=== PATIENT | female | born 1985 | race Caucasian/White ===

== ENCOUNTER 2020-03-17 22:18 | Inpatient (IN) | payer OTHER ==
[2020-03-18] MEDS ORDERED: Ondansetron PF 4 MG/2 ML Vial IVP PRN (03:50)
--- NOTE | 2020-03-18 03:56 | PDOC.HHP ---
Hospitalist HPI - History of Present Illness Right upper quadrant pain History of Present Illness: This is a 35-year-old female patient with a history of hypertension however not on any medications, anxiety who was transferred from [facility] in order that she could have GI evaluation and possible ERCP for cholelithiasis. She was in the room with her mother on arrival and her mother provided most of the history. Patient notes she gets very anxious and in language is not very fluent as her mother supports her with that. About a week ago she went out of her friend and came back home feeling uncomfortable in her epigastrium. She vomited a few times. Follow-up evaluation of PCP who ordered right upper quadrant ultrasound noted choledocholithiasis which necessitated her being admitted. On arrival at [facility] apparently GI was not availableshe was transferred here for care. Discussion of para been made with gastroenterologistDr. Jim. At the moment patient denies any nausea vomiting or fevers. Labs in [facility], CBC and BMP were essentially within normal limits. However creatinine was slightly elevated at 1.27 She is currently n.p.o. and has not had a drink since 2 AM a day ago. Hospitalist ROS - Review of Systems Constitutional: denies: fever, chills, sweats, weakness Respiratory: denies: cough, dry, shortness of breath, hemoptysis, SOB with excertion Cardiovascular: denies: chest pain, palpitations, orthopnea, paroxysmal noc. dyspnea Gastrointestinal: reports: nausea, abdominal pain. denies: vomiting, diarrhea, constipation Genitourinary: denies: dysuria, frequency, incontinence, hematuria Skin: denies: rash, lesions Neurological: denies: weakness All other systems reviewed; all pertinent +/- noted in HPI/Subj - Medication Medications: Medications: No chronic medications. Allergies: Sulfa Hospitalist History - Past Medical History Other Medical History: Anxiety, hypertension - Past Surgical History Past Surgical History: reports: no pertinent history - Family History Other Family History: Diabetes mellitus, hypertension - Social History Smoking Status: Never smoker Alcohol: reports: Occassional Living Situation: With Family Activity level: independent ambulation - Exam General Appearance: awake alert General - other findings: Her speech is a bit unclear. Eye: PERRL ENT: normocephalic atraumatic, no oropharyngeal lesions Heart: RRR, no murmur, no gallops, no rubs, normal peripheral pulses Respiratory: CTAB, no wheezes, no rales, no ronchi Gastrointestinal: soft, non-distended, normal bowel sounds, tender to palpation (In right upper quadrant) Extremities: no cyanosis, no clubbing, no edema Skin: normal turgor, no lesions, no rashes Neurological: cranial nerve grossly intact, normal sensation to touch, no focal deficits Psychiatric: normal affect, normal behavior, A&O x 3 Hospitalist H&P A/P - Plan Plan: This is a 35-year-old female with a history of anxiety, hypertension who was transferred from [facility] on account of right upper quadrant pain with ch oledocholithiasis requiring ERCP and possible surgery. Right upper quadrant pain secondary to choledocholithiasis We will keep her n.p.o. For GI possible surgery evaluation in a.m. IV fluidsD5 LR for now. Anxiety Currently stable Monitor. History of hypertension BP stable Continue monitoring. VT prophylaxisLovenox CODE STATUS full code
[2020-03-18] MEDS ORDERED: Sodium Chloride 0.9% 1,000 ML IV SCH (04:00)
[2020-03-18] MEDS ORDERED: Dextrose 5%-Lactated Ringers 1,000 ML IV SCH (04:00)
[2020-03-18] MEDS: Ondansetron ODT 4 MG TAB PO PRN ×2 (04:55→20:44)
[2020-03-18] MEDS: Dextrose 5%-Lactated Ringers 1,000 ML IV SCH ×2 (04:57→14:17)
[2020-03-18] MEDS: Enoxaparin Sodium 40 MG/0.4 ML SYRINGE SC SCH (07:50)
--- NOTE | 2020-03-18 08:25 | CON ---
DATE OF CONSULTATION: 03/18/2020 REASON FOR CONSULTATION: Choledocholithiasis. HISTORY OF PRESENT ILLNESS: Ms. Mcgowan is a 35-year-old female, who was transferred from [facility] ED last evening for further evaluation and treatment for reported choledocholithiasis and cholelithiasis. She has been having recurrent episodic severe upper abdominal pain without radiation, described as both burning and stabbing. Some of these episode was associated with nausea and vomiting. Reportedly, she was seen by her primary care provider 2 days ago and had lab tests done that showed elevation of liver profile. Ultrasound performed the next day reportedly showed cholelithiasis and choledocholithiasis with stone in the bile duct and the duct measuring 1.1 cm according to the ER physician at [facility]. I do not have the official report. Currently, she has been pain free for the last 36 hours. She is without any other medical issue except for hypertension. PAST MEDICAL HISTORY: 1. Hypertension. 2. Anxiety. 3. Mild mentally challenged. PAST SURGICAL HISTORY: [place] tooth extraction. ALLERGIES: PENICILLIN. MEDICATIONS: At home include; 1. Cryselle one p.o. daily. 2. Losartan 100 mg daily. 3. Sertraline 100 mg daily. SOCIAL HISTORY: The patient works at [employer] in [facility]. She has no tobacco and rarely consume alcohol. FAMILY HISTORY: Negative for any known GI problem, liver disease, or GI malignancy. REVIEW OF SYSTEMS: Ten-point review of systems did not show any other reported symptoms other than listed above. Negative pertinent positive or pertinent negatives. PHYSICAL EXAMINATION: VITAL SIGNS: Temperature is 97.8, blood pressure 124/85, and pulse of 81. GENERAL: She is alert, conversant. HEENT: Shows anicteric sclerae. Oropharynx is clear. CV: Shows normal S1 and S2. Regular rate and rhythm. CHEST: Shows breath sounds. ABDOMEN: Essentially soft, nontender. No palpable mass or organomegaly. Good bowel sounds. No bruit. EXTREMITIES: Show no edema. LABORATORY DATA: Labs were reviewed from the chart done at [facility] showed WBC of 7.0, hemoglobin 13.6, and platelet count of 145. Results of the chemistry and hepatic function panel are not available from the transfer record. ASSESSMENT: Symptomatic cholelithiasis with choledocholithiasis. Currently, the patient is pain free with benign exam. She is without fever and without leukocytosis. RECOMMENDATIONS: 1. ERCP. Indication including risk, not limited to, bleeding, perforation, and pancreatitis were discussed with the patient and mother. All questions answered. They agreed to proceed. 2. Surgery consult for subsequent cholecystectomy. Job ID: [id number]
[2020-03-18 09:04] LABS: SARS-CoV-2 NAA Rapid Test Not Detected (NotDetected)
[2020-03-18 09:25] LABS: ALT (SGPT) 256 U/L (8-55); AST (SGOT) 190 U/L (5-34); Albumin 3.9 g/dL (3.5-5.0); Alkaline Phosphatase 223 U/L (40-110); Anion Gap 14 mmol/L (10-20); BUN (Urea Nitrogen) 18 mg/dL (7.0-18.7); Calc. Creatinine Clearance 91 mL/min (70-130); Calcium 8.5 mg/dL (7.8-10.44); Carbon Dioxide 27 mmol/L (22-29); Chloride 101 mmol/L (98-107); Globulin 2.4 g/dL (2.4-3.5); Glucose 98 mg/dL (70-105); Protein, Total 6.3 g/dL (6.0-8.3); Sodium 139 mmol/L (136-145)
[2020-03-18 09:35] LABS: Potassium 2.9 mmol/L (3.5-5.1)
[2020-03-18] MEDS ORDERED: Promethazine HCl 25 MG/ML VIAL SLOW IVP PRN ×2 (09:37→14:35)
[2020-03-18] MEDS ORDERED: Ondansetron HCl/PF 4 MG/2 ML Vial IVP PRN ×2 (09:37→14:35)
[2020-03-18] MEDS ORDERED: Promethazine HCl 25 MG/ML VIAL IM PRN ×2 (09:37→14:35)
[2020-03-18 09:42] LABS: RBC Distribution Width 11.4 % (11.5-14.5)
[2020-03-18 09:46] LABS: #Basophils 0.1 thou/uL (0.0-0.2); #Lymphocytes 1.8 thou/uL (1.20-3.40); #Monocytes 0.4 thou/uL (0.11-0.59); #Neutrophils 2.7 thou/uL (1.40-6.50); %Basophils 1.1 % (0.0-1.0); %Lymphocytes 36.4 % (21.0-51.0); %Monocytes 7.1 % (0.0-10.0); %Neutrophils 54.5 % (42.0-75.0); Hemoglobin 13.4 g/dL (12.0-16.0); Mean Corpuscular HGB CONC 34.8 g/dL (32.0-36.0); Mean Corpuscular Hemoglobin 34.9 pg (27.0-31.0); Mean Platelet Volume 9.8 fL (7.4-10.4); Platelet Count 111 thou/uL (130-400); Platelet Morphology Comment Appears Decreased; Red Blood Cell (RBC) Count 3.83 mill/uL (4.20-5.40); White Blood Cell (WBC) Count 4.9 thou/uL (4.8-10.8)
[2020-03-18] MEDS ORDERED: PROPOFOL 200 MG/20 ML VIAL ONE (09:50)
[2020-03-18] MEDS ORDERED: Esmolol 100 MG/10 ML VIAL ONE (09:50)
[2020-03-18] MEDS ORDERED: PHENYLEPHRINE-NS 100 MCG/ML 10 ML SYRINGE ONE (09:50)
[2020-03-18] MEDS ORDERED: Dexamethasone 20 MG/5 ML VIAL ONE (09:50)
[2020-03-18] MEDS ORDERED: Ondansetron PF 4 MG/2 ML Vial ONE (09:50)
[2020-03-18] MEDS ORDERED: ePHEDrine 50 MG/ML VIAL ONE (09:50)
[2020-03-18] MEDS ORDERED: Lidocaine 1% PF 5 ML VIAL ONE (09:50)
[2020-03-18] MEDS ORDERED: Glycopyrrolate 0.2 MG/ML 5 ML SYRINGE ONE (09:50)
[2020-03-18] MEDS ORDERED: Rocuronium Bromide 10 MG/ML (10ML VIAL) ONE (09:50)
[2020-03-18] MEDS ORDERED: Midazolam HCl 2 mg/2 ml Vial ONE (10:17)
[2020-03-18] MEDS ORDERED: Iothalamate Meglumine 60% 50 ML VIAL FS ONE (10:21)
[2020-03-18] MEDS ORDERED: Indomethacin 50 MG SUPP ONE (10:22)
[2020-03-18] MEDS ORDERED: Fentanyl 100 MCG/2 ML VIAL ONE ×4 (10:26→15:10)
[2020-03-18] MEDS ORDERED: Levofloxacin 500 mg/D5W 100 ml Premix Bag ONE (10:41)
--- NOTE | 2020-03-18 11:04 | CON ---
DATE OF CONSULTATION: HISTORY: A 35-year-old female from [place], transferred to see Dr. Jim, admitted to the hospitalist service for choledocholithiasis, cholecystitis, cholelithiasis. For the past week, she has been having epigastric right upper quadrant pain. Ultrasound at [place] revealed 1.1 cm bile duct, elevated liver function tests. White count 4, hemoglobin 13. Potassium 2.9, bilirubin 2.0, AST and ALT 190 and 256, alkaline phosphatase 223. ALLERGIES: SULFA. TOBACCO: None. ALCOHOL: Socially. MEDICATIONS: 1. Sertraline 100 mg a day. 2. Losartan 100 mg a day. 3. Estradiol. PAST SURGICAL HISTORY: Ear surgery. PAST MEDICAL HISTORY: Deafness. She works at [employer]. She is 0, para 0. Her mother is with her. REVIEW OF SYSTEMS: Ten-point noncontributory. PHYSICAL EXAMINATION: VITAL SIGNS: 5 feet 5 inches, 186 pounds, 31 BMI, 97.8 degrees, 81, 19, 124/85. LUNGS: Clear to auscultation. CARDIAC: Regular rate and rhythm without murmur or gallop. ABDOMEN: Soft. Mild tenderness in the right upper quadrant. EXTREMITIES: Unremarkable. Ankle edema. LABORATORY DATA: As noted above. ASSESSMENT/PLAN: 1. Cholecystitis. 2. Cholelithiasis. 3. Choledocholithiasis. PLAN: Dr. Jim will plan on the ERCP, sphincterotomy, stone extraction under the same anesthetic plan of general anesthesia. Laparoscopic cholecystectomy. She understands risks of infection, bleeding, visceral and biliary injury and consents. Job ID: [id number]
[2020-03-18] MEDS ORDERED: Lidocaine 1% w/Epinephrine 1:100K 20 ML VIAL ONE (11:09)
[2020-03-18] MEDS ORDERED: Bupivacaine 0.25% HCL 30 ML VIAL ONE (11:09)
--- NOTE | 2020-03-18 13:35 | RAD ---
EXAM: XR ERCP DATE: 03/18/2020 11:00 AM INDICATION: ERCP COMPARISON: None. FINDIN submitted fluoroscopic images were obtained from an ERCP. Comparisons are made with a francoise or right upper quadrant ultrasound dated March 17, 2020. The submitted images demonstrate retrograde opacification of the common bile duct and intrahepatic biliary ducts. There is a mobile in traluminal filling defect within the common bile duct consistent with the previously imaged stone on the comparison right upper quadrant ultrasound. There is subsequent placement of a balloon and dis jose displacement of the intraluminal stone. Final submitted image demonstrates no focal filling defect. IMPRESSION:Choledocholithiasis. ERCP removal of the common bile duct stone.
[2020-03-18] MEDS ORDERED: Promethazine HCl 25 MG/ML VIAL ONE (14:52)
[2020-03-18] MEDS ORDERED: Ketorolac Tromethamine 30 MG/ML VIAL IVP PRN (15:03)
[2020-03-18] MEDS ORDERED: traMADol HCl 50 MG TAB PO PRN ×2 (15:03)
[2020-03-18] MEDS ORDERED: Ibuprofen 600 MG TAB PO PRN (15:03)
--- NOTE | 2020-03-18 17:18 | OP ---
DATE OF PROCEDURE: 03/17/2020 PREOPERATIVE DIAGNOSES: Cholecystitis and cholelithiasis, acute on chronic; choledocholithiasis. POSTOPERATIVE DIAGNOSES: Cholecystitis and cholelithiasis, acute on chronic; choledocholithiasis; with ERCP, sphincterotomy, stent placed by Dr. Jim with multiple stones broken up and probably will need referral to interventional iron caster for completion of clearing of bile duct. PROCEDURES PERFORMED: After Dr. Jim completed ERCP, sphincterotomy, and stent placement, laparoscopic cholecystectomy performed. Two figure-eight sutures of 4-0 Vicryl to close a small tear in the common bile duct, near the cystic duct. Endoloop was placed on the cystic duct stump. #19 Gold ALFIE drain placed in the subhepatic fossa. ANESTHESIA: General, local 0.5% Marcaine 30 mL mixed with 1% Xylocaine with epinephrine 20 mL. DESCRIPTION OF PROCEDURE: The patient was taken to the operating room, where after Dr. Donald Jim performed difficult ERCP, sphincterotomy, and stent placement, removing stones and having some smaller stones that he could not extract, the patient was taken to the operating room, in the supine position under general anesthesia, abdomen was prepared with ChloraPrep and draped in routine fashion, local anesthetic was infiltrated in the skin and subcutaneous tissue about each port site. Infraumbilical incision made, pneumoperitoneum to 15 mmHg obtained with a Veress needle, replaced with a 5 port. Right subxiphoid incision made and 11 port placed. Right subcostal incision made in midclavicular anterior axillary line and 5 ports placed. The gallbladder was inflamed and redundant, wall was thickened. Infundibulum grasped and reflected laterally. Fundus was grasped and reflected cephalad. Liver appeared to be normal. Dissection carried out carefully and critical view obtained. There was a small defect in the base of the cystic duct. The stent was not seen. This was closed with interrupted [id number] sutures of 4-0 Vicryl x2. Once this was closed, the cystic duct was too broad to be closed by Endoclips. Cystic duct divided on the gallbladder side, leaving adequate stump and two endo-loops applied securing the cystic duct and cystic duct divided. The cystic artery was off a redundant meandering right hepatic artery and was carefully dissected free, preserving the right hepatic artery and doubly clipping the cystic artery stump, dividing it. Gallbladder dissected free from liver bed from its inflammatory attachments and removed along with multiple stones with gallbladder the stones were removed, enabling removal of the gallbladder. Right subhepatic area was copiously irrigated and irrigant evacuated. Good hemostasis ensured with cautery. #19 Gold ALFIE drain placed in the subhepatic space, brought out through the lateral port site, secured to the skin with 3-0 nylon suture. Sterile dressing applied. Irrigant and pneumoperitoneum evacuated. Good hemostasis noted. All instruments removed and subxiphoid fascia approximated with [id number]-[id number] suture of 0 Vicryl. All skin incisions approximated with interrupted subdermal 4-0 Monocryl and Fonda glue applied. Job ID: [id number]
[2020-03-18] MEDS: Acetaminophen 500 MG TAB PO PRN (17:34)
--- NOTE | 2020-03-18 17:50 | PDOC.HOSPP ---
- Subjective Encounter Date: 03/18/20 Encounter Time: 17:44 Subjective: Patient seen for follow-up regarding choledocholithiasis. She reports abdominal discomfort. She reports nausea. - Objective Vital Signs & Weight: Vital Signs (12 hours) Temp Pulse Resp BP Pulse Ox 03/18/20 15:35 98.4 F 83 18 157/91 H 97 03/18/20 11:58 98 F 110 H 17 120/73 100 03/18/20 08:00 98 03/18/20 07:27 97.8 F 81 19 124/85 98 Weight Weight 186 lb Result Diagrams: 03/18/20 08:54 03/18/20 08:54 Additional Labs: Labs and MAR reviewed by me Hospitalist ROS - Review of Systems Cardiovascular: denies: chest pain, palpitations, orthopnea, paroxysmal noc. dyspnea, edema, light headedness Gastrointestinal: reports: nausea, abdominal pain. denies: vomiting, diarrhea, constipation, melena, hematochezia - Medication Medications: Active Medications Generic Name Dose Route Start Last Admin Trade Name Freq PRN Reason Stop Dose Admin Acetaminophen 1,000 mg 03/18/20 15:03 03/18/20 17:34 Acetaminophen 500 Mg Tab PO 1,000 mg Q6H PRN Administration Moderate to Severe Pain (6-10) Enoxaparin Sodium 40 mg 03/18/20 09:00 03/18/20 07:50 Enoxaparin Sodium 40 Mg/0.4 Ml Syringe SC 40 mg 0900 DEVONTE Administration Ondansetron HCl 4 mg 03/18/20 03:50 03/18/20 04:55 Ondansetron Odt 4 Mg Tab PO 4 mg Q6H PRN Administration Nausea/Vomiting Ondansetron HCl 4 mg 03/18/20 03:50 03/18/20 16:22 Ondansetron Pf 4 Mg/2 Ml Vial IVP 4 mg Q6H PRN Administration Nausea/Vomiting - Exam General - other findings: Obese Eye: anicteric sclera ENT: normocephalic atraumatic Neck: supple Heart: RRR Respiratory: CTAB Gastrointestinal: soft Gastrointestinal - other findings: Mild tenderness at surgical site Extremities: no edema Psychiatric: normal affect, normal behavior Hosp A/P - Plan Assessment/plan: choledocholithiasis -cholecystitis Status post ERCP, status post laparoscopic cholecystectomy. Continue to observe. Anxiety Stable hypertension Controlled and stable
[2020-03-18] MEDS: Potassium Chloride 20 MEQ in Lactated Ringer's 1,000 ML IV SCH ×2 (19:00→22:28)
[2020-03-18] MEDS ORDERED: Artificial Tear Sol 15 ML BOT EA EYE PRN (20:05)
[2020-03-19] MEDS ORDERED: Melatonin 3 MG TAB PO SCH (00:45)
[2020-03-19] MEDS: Acetaminophen 500 MG TAB PO PRN (01:52)
[2020-03-19] MEDS: Potassium Chloride 20 MEQ in Lactated Ringer's 1,000 ML IV SCH (05:50)
--- NOTE | 2020-03-19 05:57 | OP ---
DATE OF PROCEDURE: 03/18/2020 PROCEDURE PERFORMED: ERCP with papillotomy and stent placement. PREPROCEDURE DIAGNOSIS: Choledocholithiasis. POSTPROCEDURE DIAGNOSES: 1. Large 1 cm stone in the common bile duct. 2. Uniformly dilated common bile duct measuring 12 mm with very narrowed, long, intrapapillary portion. 3. Dense cholelithiasis visible on cholangiogram. 4. Inability to retrieve stone despite crushing, status post 11.5-South [place]ese 5 cm stent placement. DESCRIPTION OF PROCEDURE: Written consents were obtained prior to procedure. After adequate sedation, the side-viewing endoscope was advanced down the stomach through the pylorus into the duodenum. The ampulla appears very small with an accessory duct located immediately inferior to the main ampulla. Selective cannulation was difficult as the pancreatic duct was prominent. Guidewire assist was used and the common duct was able to cannulate freely. Opacification demonstrated uniformly dilated common bile duct measuring approximately 12 mm. There was a large 10 mm stone noted in the upper bifurcation. A papillotomy was performed through this small ampulla to the base of the lumen. Using a 9 to 12 mm balloon, the stone was able to be extracted down, but could not pass through the intrapapillary portion. A sphincterotome was then used in an attempt to cut through the intrapapillary portion. Multiple attempts with the balloon were unsuccessful. A biliary basket was then used to crush the stone into 3 fragments. However, these fragments could not be retrieved through the intrapapillary portion of the bile duct. A decision was made to place a stent. The guidewire was then replaced. A 5 cm 11.5-[place]ese biliary stent was then placed across the ampulla into the bile duct in good position. There was excellent drainage of bile. The instrument was then fully removed. ASSESSMENT: 1. Large choledocholithiasis, status post breaking into 3 different pieces with biliary basket, but unable to be retrieved. 2. Dilated bile duct with very narrowed intrapapillary portion. 3. Status post biliary stent placement. PLAN: 1. Proceed with laparoscopic cholecystectomy. 2. We will electively send the patient to [facility] for further attempt at biliary retrieval of the bile duct stones. Job ID: [id number]
[2020-03-19 07:15] LABS: ALT (SGPT) 247 U/L (8-55); AST (SGOT) 174 U/L (5-34); Albumin 3.3 g/dL (3.5-5.0); Alkaline Phosphatase 172 U/L (40-110); Anion Gap 14 mmol/L (10-20); BUN (Urea Nitrogen) 11 mg/dL (7.0-18.7); Bilirubin, Total 1.4 mg/dL (0.2-1.2); Calc. Creatinine Clearance 127 mL/min (70-130); Calcium 7.9 mg/dL (7.8-10.44); Carbon Dioxide 25 mmol/L (22-29); Chloride 103 mmol/L (98-107); Globulin 2.4 g/dL (2.4-3.5); Glucose 100 mg/dL (70-105); Potassium 3.5 mmol/L (3.5-5.1); Protein, Total 5.7 g/dL (6.0-8.3); Sodium 138 mmol/L (136-145)
[2020-03-19 07:22] VITALS: TEMP 98.3
[2020-03-19 07:25] LABS: #Lymphocytes 1.5 thou/uL (1.20-3.40); #Monocytes 0.6 thou/uL (0.11-0.59); #Neutrophils 6.2 thou/uL (1.40-6.50); %Basophils 0.1 % (0.0-1.0); %Eosinophils 0.2 % (0.0-10.0); %Lymphocytes 17.8 % (21.0-51.0); %Monocytes 7.6 % (0.0-10.0); %Neutrophils 74.4 % (42.0-75.0); Hemoglobin 12.1 g/dL (12.0-16.0); Mean Corpuscular Hemoglobin 34.6 pg (27.0-31.0); Mean Platelet Volume 10.8 fL (7.4-10.4); Platelet Count 105 thou/uL (130-400); RBC Distribution Width 11.3 % (11.5-14.5); Red Blood Cell (RBC) Count 3.51 mill/uL (4.20-5.40); White Blood Cell (WBC) Count 8.3 thou/uL (4.8-10.8)
[2020-03-19] MEDS: Enoxaparin Sodium 40 MG/0.4 ML SYRINGE SC SCH (09:06)
--- NOTE | 2020-03-19 10:53 | DIS ---
DATE OF ADMISSION: 03/17/2020 DATE OF DISCHARGE: 03/19/2020 DISCHARGE DIAGNOSES: Acute cholecystitis, cholelithiasis, and choledocholithiasis. PROCEDURE DURING THIS HOSPITALIZATION: ERCP, sphincterotomy, stent placement, could not clear the duct of all the stones due to small outflow from her common bile duct to her duodenum. Dr. Jim fragmented stones, removed some stones, but she has stones, they will need to be addressed by interventional sterile technician as an outpatient later, stent was left in place. Laparoscopic cholecystectomy performed and she had a small tear in her cystic duct and common duct junction. A 4-0 Vicryl was placed, drain in place. She has serous drainage. Postoperatively here, her liver function tests have markedly improved. Her hemoglobin remained stable at 13 and 12 on admission and discharge. Bilirubin has fallen from 2 to 1.4. Transaminase improved. DISCHARGE MEDICATIONS: 1. Tylenol. 2. Advil [id number]-jzyzfrp. 3. Ultram if needed. 4. Antibiotics not necessary. DIET AND ACTIVITY: As tolerated. No lifting restrictions. FOLLOWUP: Follow up with Dr. Pandya in 1 to 2 weeks. Tylenol and Advil for pain. Ultram p.r.n. #25 given with a refill. Drain removed prior to discharge. HISTORY: A 35-year-old female with biliary symptoms, presents with abdominal pain, transferred to this facility from [place], receiving intravenous fluids, antibiotics, undergoing ERCP, sphincterotomy, stent placement for reasons as discussed above and followed by the same anesthesia, laparoscopic cholecystectomy. Drain was removed prior to discharge. Follow up at Dr. Pandya's office in 1 to [address] Jim, outpatient interventional sterile technician in [place] for removal of the remainder stones. Job ID: [id number]
[2020-03-19 12:59] VITALS: BMI 31.1
[2020-03-19 13:10] VITALS: BP 141/66
--- NOTE | 2020-03-19 19:09 | PDOC.DS.DS ---
Provider - Provider Date of Admission: 03/17/20 23:24 Date of Discharge: 03/19/20 Admitting Provider: Donny Torres MD Consultations: Gastroentrology (Dr. Jim), General Surgery (Dr. Pandya) Primary Care Physician: Unknown Course - Hospital Course Hospital Course: Discharge diagnosis: 1. Acute cholecystitis 2. Cholelithiasis 3. Choledocholithiasis Hospital course: Patient is a pleasant 35-year-old lady who was admitted to the hospital on March 17, 2020 for cholelithiasis, choledocholithiasis and acute cholecystitis. She was seen by gastroenterology and general surgery services. On March 18 she underwent ERCP, with fragmentation of stone stones. Some of the stones were removed but she has residual stones and will need to be addressed by interventional stock control supervisor as outpatient. She had a biliary stent in place. She also had laparoscopic cholecystectomy. She had a drain removed on March 19, 2020 and has been cleared for discharge by consulting services. Many thanks for allowing me to participate in your patient's care. Please feel free to contact me with any questions or concerns. Discharge destination: Home Total amount of time spent coordinating this discharge: 20 minutes Resuscitation Status: 03/18/20 03:50 Resuscitation Status Routine Resuscitation Status: FULL: Full Resuscitation - Labs Lab Results: 03/19/20 06:02 03/19/20 06:02 Abnormal Lab Results - Last 48 hrs 03/18/20 08:54: RBC 3.83 L, MCV 100.0 H, MCH 34.9 H, RDW 11.4 L, Plt Count 111 L, Basophils % 1.1 H, Plt Morphology Comment Appears Decreased L 03/18/20 08:54: Potassium 2.9 L*, Creatinine 1.16 H, Total Bilirubin 2.0 H, AST 190 H, ALT 256 H, Alkaline Phosphatase 223 H 03/19/20 06:02: Total Bilirubin 1.4 H, AST 174 H, ALT 247 H, Alkaline Phosphatase 172 H, Serum Total Protein 5.7 L, Albumin 3.3 L 03/19/20 06:02: RBC 3.51 L, Hct 35.7 L, MCV 102.0 H, MCH 34.6 H, RDW 11.3 L, Plt Count 105 L, MPV 10.8 H, Lymphocytes % 17.8 L, Monocytes # 0.6 H - Physical Exam Vitals: Vital Signs (12 hours) Temp Pulse Resp BP Pulse Ox 03/19/20 13:08 112 H 16 141/66 H 96 03/19/20 09:10 99 03/19/20 07:18 98.3 F 79 18 121/77 99 Weight Admit Weight 186 lb Weight 187 lb 6.287 oz Physical Exam: The patient was seen and examined on the day of discharge. Patient denies chest pain or shortness of breath. Vital signs are stable. S1 and S2 are heard. Lungs are clear to auscultation bilaterally. Plan - Discharge Medications Prescriptions: traMADol HCl [Ultram] 50 mg PO Q6H PRN #20 tab PRN Reason: Moderate Pain (4-6) Home Medications: Medication Instructions Recorded Confirmed Type Losartan Potassium [Cozaar] 100 mg PO DAILY 03/18/20 03/18/20 History Norgestrel-Ethinyl Estradiol 1 tablet PO DAILY 03/18/20 03/18/20 History [Cryselle-28] Sertraline HCl [Zoloft] 100 mg PO DAILY 03/18/20 03/18/20 History Acetaminophen [Tylenol Extra 1,000 mg PO Q6H PRN tab 03/19/20 Rx Strength] Ibuprofen [Motrin] 600 mg PO Q6H PRN tab 03/19/20 Rx traMADol HCl [Ultram] 50 mg PO Q6H PRN #20 tab 03/19/20 Rx Allergies: Sulfa (Sulfonamide Antibiotics) Allergy (Verified 03/18/20 02:01) - Discharge Instructions Discharge Instructions:: shower/bathe anytime. Activity:: Activity as Tolerated (No lifting restrictions) Nourishment:: Regular Diet - Follow up Plan Referrals: James Pandya MD [Active] - 2-3 Weeks Matheus Jim MD [Active] - (Dr Jim to arrange outpt [facility] interventional appt) Unknown,Unknown [Primary Care Provider] - Disposition: HOME Quality - Care Measures CORE MEASURES:: N/A
== END 2020-03-19 13:09 | disposition home or self-care (01) | DRG 419 ==
LOC: T4-A 23:24
PROVIDERS: ADMIT Student in an Organized Health Care Education/Training Program; ATTEND Internal Medicine
PROC: 0FT44ZZ Resection of Gallbladder, Percutaneous Endoscopic Approach (ICD-10-PCS; principal; 2020-03-18)
PROC: 0F798DZ Dilation of Common Bile Duct with Intraluminal Device, Via Natural or Artificial Opening Endoscopic (ICD-10-PCS; 2020-03-18)
PROC: 0FC98ZZ Extirpation of Matter from Common Bile Duct, Via Natural or Artificial Opening Endoscopic (ICD-10-PCS; 2020-03-18)
PROC: BF101ZZ Fluoroscopy of Bile Ducts using Low Osmolar Contrast (ICD-10-PCS; 2020-03-18)
DX: K80.66 Calculus of gallbladder and bile duct with acute and chronic cholecystitis without obstruction (principal); Z20.828 Contact with and (suspected) exposure to other viral communicable diseases; I10 Essential (primary) hypertension; F41.9 Anxiety disorder, unspecified; H91.90 Unspecified hearing loss, unspecified ear; E66.9 Obesity, unspecified; Z68.31 Body mass index [BMI] 31.0-31.9, adult; Z82.49 Family history of ischemic heart disease and other diseases of the circulatory system; Z83.3 Family history of diabetes mellitus; Z79.899 Other long term (current) drug therapy; Z88.0 Allergy status to penicillin; Z88.2 Allergy status to sulfonamides
CPT/HCPCS: 36415; 74330; 80053; 85025; 88304; J1100; J1610; J1650; J1956; J2250; J2405; J2550; J2704; J3010; J3480; J3490; J7120; Q0162; S0020; U0002

== ENCOUNTER 2022-11-22 09:01 | Outpatient (CLI) | payer BC ==
[2022-11-22] MEDS ORDERED: Magnevist 469MG/ML 20 ML VIAL ONE (09:55)
== END 2022-11-22 09:02 | disposition home or self-care (01) ==
LOC: BICMRI 09:01
PROVIDERS: ATTEND Internal Medicine Gastroenterology
DX: R10.11 Right upper quadrant pain (principal); K80.70 Calculus of gallbladder and bile duct without cholecystitis without obstruction
CPT/HCPCS: 74183; 82565; A9579